=== PATIENT | male | born 1985 | race Two or more races ===

== ENCOUNTER 2020-06-29 02:15 | Inpatient (IN) | payer MEDICAID ==
[~2020-06-29] VITALS: Ht 172.7 cm; Wt 88.5 kg
[2020-06-29] MEDS ORDERED: DEXAMETHASONE 10 MG/ML VIAL IV ONE (03:15)
[2020-06-29] MEDS ORDERED: ACETAMINOPHEN 325MG TABLET PO ONE (03:15)
[2020-06-29] MEDS ORDERED: CEFTRIAXONE 1 G PREMIX 50 ML IV ONE (03:15)
[2020-06-29] MEDS ORDERED: AZITHROMYCIN 500 MG in DEXT 5% WATER 250 ML IV ONE (03:15)
[2020-06-29 03:35] LABS: MEAN PLATELET VOLUME 8.2 fl (7.4-10.4); RED CELL DISTRIBUTION WIDTH 19.4 % (11.6-14.6)
[2020-06-29] MEDS ORDERED: MORPHINE SULFATE 4 MG/ML CPJ (NOT FOR IM USE) IV STA (03:42)
[2020-06-29] MEDS ORDERED: ONDANSETRON HCL 4MG/2ML INJ IV STA (03:42)
[2020-06-29 03:43] LABS: CHLORIDE 101 mEq/L (98-107)
[2020-06-29 03:51] LABS: INR 1.2; PARTIAL THROMBOPLASTIN TIME 29.6 sec (23.4-31.0); PROTHROMBIN TIME 12.4 sec (9.6-11.0)
[2020-06-29 04:00] LABS: HEMOGLOBIN. 10.6 g/dL (14.0-18.0); MEAN CORPUSCULAR HEMOGLOBIN 24.6 pg (28.0-32.0); MEAN CORPUSCULAR VOLUME 77.1 fL (80.0-94.0); PLATELET 276 x1000/uL (130-400); RED BLOOD CELL COUNT 4.29 mill/uL (4.7-6.1)
[2020-06-29] MEDS ORDERED: ENOXAPARIN 100MG/ML SYR SUBCUT ONE (04:30)
[2020-06-29 04:56] LABS: PLATELET ESTIMATE NORMAL
[2020-06-29] MEDS ORDERED: IOHEXOL-350 100 ML BOTTLE ONE (05:16)
[2020-06-29 05:22] LABS: CLARITY URINE CLEAR (CLEAR); COLOR URINE YELLOW (YELLOW); KETONES URINE NEGATIVE (NEGATIVE); LEUKOCYTE ESTERASE URINE NEGATIVE (NEGATIVE); NITRITE URINE NEGATIVE (NEGATIVE); OCCULT BLOOD URINE NEGATIVE (NEGATIVE); PROTEIN URINE NEGATIVE (NEGATIVE); SPECIFIC GRAVITY URINE 1.035 (1.005-1.030); UROBILINOGEN URINE 0.2 E.U./dL (0.2-1.0)
[2020-06-29] MEDS ORDERED: CEFTRIAXONE 1 G PREMIX 50 ML IV SCH (09:00)
[2020-06-29] MEDS ORDERED: AZITHROMYCIN 250 MG TABLET PO SCH (09:00)
[2020-06-29] MEDS ORDERED: ONDANSETRON HCL 4MG/2ML INJ IV PRN (09:00)
[2020-06-29] MEDS ORDERED: ALBUTEROL 6.7GM HFA INHALER ORI SCH (09:00)
[2020-06-29] MEDS ORDERED: BENZONATATE 100MG CAPSULE PO PRN (09:00)
[2020-06-29] MEDS ORDERED: OMEP40CA12 MT (09:15)
[2020-06-29] MEDS ORDERED: LOSA25TA26 PO (09:15)
[2020-06-29] MEDS ORDERED: VIT500TA8 PO (09:15)
[2020-06-29] MEDS ORDERED: BENZ200C52 MT (09:15)
[2020-06-29] MEDS ORDERED: MONT4TAB11 MT (09:15)
[2020-06-29] MEDS ORDERED: IPRA4AER INH (09:15)
[2020-06-29] MEDS ORDERED: AMLO10TA80 PO (09:15)
[2020-06-29] MEDS: GUAIFENESIN 600MG ER TABLET PO SCH ×2 (10:30→21:00)
[2020-06-29 12:48] VITALS: BP 141/89
[2020-06-29 13:54] VITALS: BP 141/89
[2020-06-29] MEDS ORDERED: DEXA4TAB PO (14:51)
[2020-06-29] MEDS ORDERED: TRAM50TA3 MT (14:51)
[2020-06-29 15:11] LABS: *AMPHETAMINES SCREEN URINE NEGATIVE (NEGATIVE); *BARBITURATES SCREEN URINE NEGATIVE (NEGATIVE); *BENZODIAZEPINES SCREEN URINE NEGATIVE (NEGATIVE); *COCAINE SCREEN URINE NEGATIVE (NEGATIVE); METHADONE URINE SCREEN NEGATIVE (NEGATIVE); OPIATES URINE SCREEN PRESUMTIVE POSITIVE (NEGATIVE); PHENCYCLIDINE URINE SCREEN NEGATIVE (NEGATIVE)
[2020-06-29 15:12] LABS: CANNABINOID URINE SCREEN NEGATIVE (NEGATIVE)
[2020-06-29 16:00] VITALS: BP 137/88
[2020-06-29 16:31] VITALS: BP 140/88
[2020-06-29] MEDS ORDERED: ENOXAPARIN 100MG/ML SYR SUBCUT SCH (18:00)
[2020-06-29 20:20] VITALS: BP 130/86
[2020-06-30] MEDS ORDERED: CEFTRIAXONE 1,000 MG in DEXTROSE 5% WATER 50 ML IV SCH ×4 (01:00)
== END 2020-06-29 21:53 | disposition home or self-care (01) | DRG 720 ==
LOC: ER 02:15 → 7WST 05:20 → EDBEDREQSVC 11:33 → ENRESERV 11:45
PROVIDERS: ADMIT Internal Medicine; ATTEND Internal Medicine
DX: A41.89 Other specified sepsis (principal); U07.1 COVID-19; E44.0 Moderate protein-calorie malnutrition; G47.33 Obstructive sleep apnea (adult) (pediatric); I10 Essential (primary) hypertension; J12.89 Other viral pneumonia; J47.0 Bronchiectasis with acute lower respiratory infection; D64.9 Anemia, unspecified; J84.10 Pulmonary fibrosis, unspecified; J96.00 Acute respiratory failure, unspecified whether with hypoxia or hypercapnia; R74.0 Nonspecific elevation of levels of transaminase and lactic acid dehydrogenase [LDH]; I82.432 Acute embolism and thrombosis of left popliteal vein; Z79.01 Long term (current) use of anticoagulants; Z86.19 Personal history of other infectious and parasitic diseases; Z86.718 Personal history of other venous thrombosis and embolism; Z87.01 Personal history of pneumonia (recurrent); Z68.29 Body mass index [BMI] 29.0-29.9, adult; Z79.899 Other long term (current) drug therapy
CPT/HCPCS: 36415; 71045; 71275; 80053; 80305; 81003; 83605; 83880; 84145; 84484; 85025; 87635; 93005; 93970; 94640; 99291; J0456; J0696; J1100; J1650; J2270; J2405; J7060; Q9967